=== PATIENT | female | born 1970 | race Caucasian/White ===

== ENCOUNTER 2017-10-28 02:35 | Outpatient (CLI) | payer BC, SELFPAY ==
--- NOTE | 2017-10-28 08:35 | DI.US_ITS ---
SYMPTOM/DIAGNOSIS: F/U RT THYROID NODULE THYROID ULTRASOUND: Routine examination. Comparison is made with 04/01/17. The right lobe measures 4.7 by 1.5 by 1.3 cm. The isthmus measures .2 cm. Left lobe measures 4.5 by 1.5 by 1.6 cm. There is again seen a mass in the mid pole of the right thyroid gland. The mass measures 1.4 by 0.8 by 0.7 cm. Using similar measuring techniques, the previously noted mass measures 1.3 by 0.7 cm. It is predominantly solid with several anechoic areas internally. These are unchanged. There does appear to be some internal blood flow noted. There is again seen a 0.1 cm. cyst in the left lobe near the isthmus. This is unchanged. There is a subtle area of slight decreased attenuation in the mid pole of the left lobe of the thyroid gland measuring 0.7 by 0.4 by 0.4 cm. No internal blood flow is seen. There is also a 0.5 by 0.3 by 0.4 cm. hypoechoic nodule seen in the lateral aspect of the left lobe of the thyroid gland. No blood flow is seen internally. These last two lesions were not appreciated on the prior thyroid ultrasound. IMPRESSION: Multi nodular thyroid gland. Stable size and appearance of the 1.4 cm. nodule in the right lobe. Two additional nodules are identified in the left lobe, not previously recognized on the examination from 04/01/17.
== END 2017-10-28 02:55 ==
DX: E04.2 Nontoxic multinodular goiter (principal)
CPT/HCPCS: 76536

== ENCOUNTER 2017-12-17 09:35 | Outpatient (CLI) | payer BC, SELFPAY ==
[2017-12-17 11:18] LABS: TSH (W/Ref FT4) 1.55 uIU/mL (0.358-3.74)
== END 2017-12-17 09:55 ==
PROVIDERS: Visit Provider Otolaryngology
DX: E04.2 Nontoxic multinodular goiter (principal)
CPT/HCPCS: 36415; 84443

== ENCOUNTER 2018-06-25 02:00 | Outpatient (CLI) | payer BC, SELFPAY ==
--- NOTE | 2018-06-25 16:05 | DI.US_ITS ---
SYMPTOMS/DIAGNOSIS: MULTINODULAR THYROID, E04.2 THYROID ULTRASOUND: Comparison is made with [id number]. The right lobe measures 4.4 x 1.5 x 1.4 cm. The left lobe measures 4.6 x 1.5 x 1.6 cm. A 1.4 cm nodule is again seen in the mid right thyroid lobe. The borders are smoothly marginated. There is no change in size or appearance. Minimal heterogeneity is seen in the left lobe of the thyroid. There are a few small nodules measuring less than 5 mm. IMPRESSION: Stable 1.4 cm nodule in the right lobe of the thyroid.
== END 2018-06-25 02:20 ==
PROVIDERS: Visit Provider Otolaryngology
DX: E04.2 Nontoxic multinodular goiter (principal)
CPT/HCPCS: 76536

== ENCOUNTER 2018-10-01 08:00 | Outpatient (CLI) | payer BC, SELFPAY ==
[2018-10-01 09:38] LABS: ALT 37 U/L (12-78); AST 18 U/L (15-37); Albumin 3.8 g/dL (3.4-5.0); Alkaline Phosphatase 92 U/L (46-116); Anion Gap 10.4 mmol/L (3-11); BUN 10 mg/dL (7-18); Bilirubin, Total 0.5 mg/dL (0.2-1.0); CO2 26.6 mmol/L (21.0-32.0); CREATININE 1.15 mg/dL (0.55-1.02); Calcium 9.1 mg/dL (8.5-10.1); Calculated LDL 139 mg/dL; Chloride 102 mmol/L (98-107); Cholesterol 208 mg/dL (50-200); Estimated GFR 50.36 (mL/min/1.73m2); Glucose 90 mg/dL (70-100); HDL Cholesterol 43 mg/dL (40-60); Potassium 4.4 mmol/L (3.5-5.1); Sodium 139 mmol/L (136-145); Total Protein 7.2 g/dL (6.4-8.2); Triglyceride 132 mg/dL (30-150)
== END 2018-10-01 08:20 ==
DX: E04.1 Nontoxic single thyroid nodule (principal); E78.2 Mixed hyperlipidemia; I10 Essential (primary) hypertension; K21.9 Gastro-esophageal reflux disease without esophagitis; Z00.00 Encounter for general adult medical examination without abnormal findings
CPT/HCPCS: 36415; 80053; 80061; 83721

== ENCOUNTER 2019-11-03 09:57 | Outpatient (REF) | payer BC, SELFPAY ==
--- NOTE | 2019-11-03 08:00 | PAPFT_PTH ---
PATIENT: Abimbola Stover LOC: [facility] U#:[id number] AGE/SX: 49/F ROOM: RE11/03/[address]: Nichole Salazar APRN : 1970 BED: DIS: 11/03/2019 SPEC #: [id number] RECD: 11/03/19 13:12 STATUS: SAMAN REMehreen #: [id number] CHAPARRITA: 11/03/19 08:[address]: Nichole Salazar DEPT: [facility] Cytology RECD BY: Charu Garcia Tissues: 1 - CX/ENDOCX FOR PAP SMEARS Procedures: PAP THIN PREP/UVM Screening HPV DNA PROBE Comments: [id number]
== END 2019-11-03 10:17 ==
LOC: LBN 09:57
DX: Z12.4 Encounter for screening for malignant neoplasm of cervix (principal); Z11.51 Encounter for screening for human papillomavirus (HPV)
CPT/HCPCS: 88142; 87624

== ENCOUNTER 2019-11-16 02:59 | Outpatient (CLI) | payer BC, SELFPAY ==
--- NOTE | 2019-11-16 08:45 | DI.MAMMO_ITS ---
EXAM: MAMMO SCREENING CLINICAL HISTORY: screening,Z12.39 TECHNIQUE: Mammograms were interpreted according to the usual protocol including computer analysis w [employer] CAD system, tomosynthesis and C-view imaging. COMPARISON: No exams were available for comparison. Baseline exam. FINDINGS: The breasts are composed of scattered fibroglandular densities, Breast Density category B. No suspicious masses or suspicious microcalcifications are seen. No skin thickening or abnormal axillary lymph nodes are seen. There has been no significant change from prior exams. IMPRESSION: BI-RADS Category 1, Negative mammogram Yearly screening mammography is recommended. Breast Density - Category B, scattered fibroglandular densities. A negative radiographic report should not delay biopsy if a dominant or clinically suspicious mass is present. Up to ten percent of cancers are not identified on mammography. A negative report may reinforce clinical impression. Adenosis and dense breasts may obscure an underlying neoplasm. False positive reports average 6 to 10%. Patient will receive a letter notifying them of these results.
== END 2019-11-16 03:19 ==
DX: Z12.31 Encounter for screening mammogram for malignant neoplasm of breast (principal)
CPT/HCPCS: 77063; 77067

== ENCOUNTER 2019-11-16 05:27 | Outpatient (CLI) | payer BC, SELFPAY ==
[2019-11-16 09:35] LABS: ALT 36 U/L (14-59); AST 19 U/L (15-37); Albumin 3.8 g/dL (3.4-5.0); Alkaline Phosphatase 104 U/L (46-116); BUN 10 mg/dL (7-18); Bilirubin, Total 0.5 mg/dL (0.2-1.0); CREATININE 1.21 mg/dL (0.55-1.02); Calcium 8.9 mg/dL (8.5-10.1); Chloride 103 mmol/L (98-107); Glucose 94 mg/dL (74-106); Potassium 4.1 mmol/L (3.5-5.1); Sodium 138 mmol/L (136-145); TSH (W/Ref FT4) 1.73 uIU/mL (0.36-3.74); Total Protein 6.9 g/dL (6.4-8.2)
== END 2019-11-16 05:47 ==
DX: G47.00 Insomnia, unspecified (principal); E04.1 Nontoxic single thyroid nodule; E04.2 Nontoxic multinodular goiter; I10 Essential (primary) hypertension; K20.0 Eosinophilic esophagitis; Z00.00 Encounter for general adult medical examination without abnormal findings
CPT/HCPCS: 36415; 80053; 84443

== ENCOUNTER 2020-12-25 04:17 | Outpatient (CLI) | payer BC, SELFPAY ==
[2020-12-26 01:37] LABS: BUN 13 mg/dL (7-18); CREATININE 1.2 mg/dL (0.55-1.02); Calcium 8.9 mg/dL (8.5-10.1); Calculated LDL 127 mg/dL (<100); Cholesterol 186 mg/dL (<200); Estimated GFR 47.36 (mL/min/1.73m2); Glucose 94 mg/dL (74-106); HDL Cholesterol 42 mg/dL (40-60); Total Protein 6.9 g/dL (6.4-8.2); Triglyceride 89 mg/dL (<150)
[2020-12-26 01:38] LABS: ALT 42 U/L (14-59); AST 16 U/L (15-37); Albumin 3.8 g/dL (3.4-5.0); Alkaline Phosphatase 95 U/L (46-116); Anion Gap 10.4 mmol/L (3-11); Bilirubin, Total 0.3 mg/dL (0.2-1.0); CO2 25.6 mmol/L (21.0-32.0); Chloride 105 mmol/L (98-107); Potassium 4.3 mmol/L (3.5-5.1); Sodium 141 mmol/L (136-145)
== END 2020-12-25 04:18 | disposition home or self-care (01) ==
LOC: LBO 04:17
DX: Z00.00 Encounter for general adult medical examination without abnormal findings (principal); E78.5 Hyperlipidemia, unspecified
CPT/HCPCS: 36415; 80053; 80061

== ENCOUNTER 2021-01-21 17:22 | Outpatient (REF) | payer BC, SELFPAY ==
[2021-01-21 17:11] LABS: Source Nasal/Nares
[2021-01-21 22:25] LABS: COVID-19 PCR Negative (Negative)
== END 2021-01-21 17:23 | disposition home or self-care (01) ==
LOC: LBN 17:22
PROVIDERS: Visit Provider Obstetrics & Gynecology
DX: Z20.822 Contact with and (suspected) exposure to COVID-19 (principal)
CPT/HCPCS: 87635

== ENCOUNTER 2021-01-23 08:30 | Day surgery (SDC) | payer BC, SELFPAY ==
[2021-01-23 08:48] VITALS: BP 156/80; PULSE 75; RESP 16; TEMP 36.8; O2SAT 99
--- NOTE | 2021-01-23 09:18 | ANES.PREOP_ITS ---
General Info Date of Service Date Performed: 01/23/21 Height: 5 ft 4 in Weight: 95.878 kg Body Mass Index (BMI): 36.3 Surgical Procedure: Operation Date: 01/23/21 09:55 Proposed Procedures Side Surgeon p Dilation & Curettage with Hysteroscopy and IUD Removal Rubia Medrano MD Meds Allergies and Home Medications Allergies Allergy/AdvReac Type Severity Reaction Status Date / Time influenza virus vaccine, Allergy Intermediate Rash Verified 01/23/21 08:45 specific peanut Allergy Intermediate Espophageal Verified 01/23/21 08:45 Spasms shellfish derived Allergy Intermediate Espophageal Verified 01/23/21 08:45 Spasms strawberry Allergy Intermediate Espophageal Verified 01/23/21 08:45 Spasms egg Allergy Verified 01/23/21 08:45 bupropion AdvReac Severe SUICIDAL Verified 01/23/21 08:45 IDEATION escitalopram oxalate AdvReac Intermediate Verified 01/23/21 08:45 [From Lexapro] Dairy Allergy Intermediate Espophageal Uncoded 01/23/21 08:45 Spasms Home Medication Medication Instructions Recorded copper [Paragard T 380-A] 1 ea INTRAUTERINE ONCE #1 implant 03/05/14 lisinopril 20 mg tablet 20 mg PO DAILY #90 tab 07/03/20 pantoprazole 20 mg tablet,delayed 20 mg PO DAILY #90 tab 09/06/20 release amlodipine 2.5 mg PO HS 01/22/21 Current Visit Medications: Current Medications Generic Name Dose Route Start Last Admin Trade Name Freq PRN Reason Stop Dose Admin Ringer's Solution 1,000 mls @ 125 mls/hr 01/23/21 06:00 IV 02/21/21 23:59 INFUSION REGINALDO IV Miscellaneous Supplies 1 each 01/23/21 06:00 Iv Access IV 02/21/21 23:59 DIRECTED REGINALDO Sodium Chloride 0 ml 01/23/21 06:00 Normal Saline Flush 10 Ml Syr IV 02/21/21 23:59 PRN PRN Sodium Chloride 0 ml 01/23/21 06:00 Normal Saline 10 Ml Vial IJ 02/21/21 23:59 DIRECTED PRN Sterile Water 0 ml 01/23/21 06:00 Water,Injection,Sterile 10 Ml Vial IJ 02/21/21 23:59 DIRECTED PRN PFSH Active Problems Active Problems: Problem Status Onset Code Essential hypertension 07/14/13 I10 External hemorrhoids 05/07/17 K64.4 Migraine G43.909 Increased body mass index (BMI) R63.8 Actinic keratosis L57.0 Nancy-menopause N95.1 Hyperlipidemia LDL goal <100 E78.5 IUD mechanical complication T83.39XA Retained intrauterine contraceptive device (IUD) T83.39XA Medical History Active Problem List Essential hypertension (Acute 07/14/13) External hemorrhoids (Acute 05/07/17) Migraine (Acute) Increased body mass index (BMI) (Acute) Actinic keratosis (Acute) Nancy-menopause (Acute) Hyperlipidemia LDL goal <100 (Acute) IUD mechanical complication (Acute) Retained intrauterine contraceptive device (IUD) (Acute) Medical History Eosinophilic esophagitis (01/01/17) by EGD 11/24/2016 +2cm hiatal Hernia [facility] [place]07/17, repeat in 2022 Gastroesophageal reflux (07/14/13) 12/2020 - Pantaprozole best results-now using every other day pt. 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 Plantar fasciitis of left foot Plantar wart of both feet Sciatica of left side (03/03/14) [facility] [place] clinic and pain clinic 08/30 disc excision L4-5 [place] [facility] [place] Surgical History Surgical History H/O eye surgery in childhood for ptosis History of lumbar laminectomy (2016) for siatica Tobacco Smoking/Tobacco Use Status: Never Passive smoking exposure: Yes Second hand exposure: Yes Alcohol Alcohol Intake: current Alcohol intake frequency: holidays/special occasions only Alcohol type: hard liquor Substance Use Substance use: Never Substance use type: does not use Prental History History 1 Para Hx # Term Pregnancies 1 Multiple births Hx # Pregnancies Ectopic pregnancies AB induced Hx Number of Living Children AB spontaneous Past Pregnancies Del. Date GA/Weeks # Outcome Route Wgt Sex Labor Lgth Anesthes ia Location Prov Complic 09/24/89 40 No Successful vaginal 3061.748 g Male 10 Vital Signs and Lab Results Vital Signs Most Recent Vital Signs in EMR: Most Recent Vital Signs Temp Pulse Resp BP Pulse Ox 36.8 C 75 16 156/80 H 99 01/23/21 08:48 01/23/21 08:48 01/23/21 08:48 01/23/21 08:48 01/23/21 08:48 Lab Results Result Diagrams: 01/23/21 09:05 Blood Type / Crossmatch: Patient ABO/Rh Pending 01/23/21 09:05 01/23/21 Complete Blood Count: No Data to Display Complete Metabolic Panel: Sodium Level 141 mmol/L (136-145) 12/25/20 08:20 12/25/20 Potassium Level 4.3 mmol/L (3.5-5.1) 12/25/20 08:20 12/25/20 Chloride Level 105 mmol/L (98-107) 12/25/20 08:20 12/25/20 Carbon Dioxide Level 25.6 mmol/L (21.0-32.0) 12/25/20 08:20 12/25/20 Blood Urea Nitrogen 13 mg/dL (7-18) 12/25/20 08:20 12/25/20 Creatinine 1.2 mg/dL (0.55-1.02) H 12/25/20 08:20 12/25/20 Estimated GFR/1.73 m2 47.36 (mL/min/1.73m2) 12/25/20 08:20 12/25/20 Calcium Level 8.9 mg/dL (8.5-10.1) 12/25/20 08:20 12/25/20 Albumin 3.8 g/dL (3.4-5.0) 12/25/20 08:20 12/25/20 Glucose Level 94 mg/dL (74-106) 12/25/20 08:20 12/25/20 Liver Function Panel: Alanine Aminotransferase (ALT/SGPT) 42 U/L (14-59) 12/25/20 08:20 12/25/20 Aspartate Amino Transf (AST/SGOT) 16 U/L (15-37) 12/25/20 08:20 12/25/20 Coagulation Panel: No Data to Display Cardiac Panel: No Data to Display Arterial Blood Gas: No Data to Display Venous Blood Gas: No Data to Display Pancreas Panel: No Data to Display Thyroid Panel: No Data to Display Infectious Disease: Coronavirus (COVID-19)(PCR) Negative (Negative) 01/21/21 15:30 01/21/21 Coronavirus 2019 Source Nasal/Nares 01/21/21 15:30 01/21/21 Blood Cultures: No Data to Display Toxicology Panel: No Data to Display Panel: No Data to Display Anesthesia Assessment and Plan Anesthesia History Personal History: No History of Anesthesia Complications Family History: No Family History of Anesthesia Complications Exercise Tolerance Exercise Tolerance: Metabolic Equivalents>4 Pertinent Negatives Pertinent Negatives: No Symptoms of GERD, No Major Cardiovascular Symptoms or Complaints, No Major Pulmonary Symptoms or Complaints and No History of CVA/TIA Cardiac & Pulmonary Exam Cardiac Exam: Normal S1/S2 Heart Sounds Pulmonary Exam: Clear Bilateral Breath Sounds Implantable Cardiac Device Does patient have a Pacemaker or an ICD?: No Airway Exam Known Difficult Airway: No Mallampati Class: 2 Mouth Opening: Normal (> 3cm) Thyromental Distance: Greater than 3 cm Neck Range of Motion: Full ROM Neck Circumference: Normal Teeth Condition: Normal Dentition ASA Classification ASA Score: ASA 2 Emergency Case?: No NPO Status NPO Status: NPO Clears >2 hours, Solids >8 hours Status Status: Not Relevant due to Medical History Anesthesia Plan Resuscitation Status: Full Code Anesthesia Technique: General Anesthesia Airway Planned: Natural Airway Monitors Used: Standard Monitors
[2021-01-23 09:19] LABS: HCT 43.4 % (36.0-46.0); HGB 14.1 g/dL (11.2-15.7); MCH 30.3 pg (27.0-33.0); MCHC 32.5 % (32.0-36.0); MCV 93.1 fL (80-95); MPV 10.5 fL (8.0-11.0); Platelet Count 216 10^3/uL (130-400); RBC 4.66 10^6/uL (3.93-5.22); RDW-SD 41.7 fL; WBC 7.93 10^3/uL (4.4-10.8)
[2021-01-23] MEDS: Lactated Ringers 1,000 ML 125 ML IV (09:23)
[2021-01-23 09:29] VITALS: BMI 36.3
--- NOTE | 2021-01-23 09:29 | NUR.NOTE ---
Nursing Note: Patient had lab draw at 0857 for CBC and type and screen, MD at bedside at 0755 to complete consent and update H&P- MD said to call on cell phone when ready for procedure, Anesthesia at bedside at 09 to consent patient IV patent and running call light within reach
--- NOTE | 2021-01-23 10:19 | ENDOMET_PTH ---
PATIENT: Abimbola Stover LOC: [facility] U#:[id number] AGE/SX: 50/F ROOM: RE01/23/[address]: Rubia Medrano MD : 1970 BED: DIS: 01/23/2021 SPEC #: [id number] RECD: 01/23/21 12:44 STATUS: SAMAN REQ #: [id number] CHAPARRITA: 01/23/21 10:[address]: Rubia Medrano DEPT: Surgical Specimen RECD BY: Charu Garcia ENTERED: 01/23/21 12:44 SP TYPE: Endomet OTHR DR: Nichole Salazar APRN Tissues: 1 - ENDOMETRIUM BX/CURRETTE Procedures: GROSS AND MICRO LEVEL 4 Comments: [id number]
[2021-01-23] MEDS: Silver Nitrate Stick 1 EACH (10:23)
[2021-01-23 10:34] VITALS: BP 147/97; PULSE 72; RESP 16; TEMP 36.5; O2SAT 96
[2021-01-23 10:39] VITALS: BP 147/97; PULSE 69; RESP 10; TEMPC 36.3; O2SAT 96
--- NOTE | 2021-01-23 10:39 | W.ANESPOSTOP ---
Postoperative Evaluation Date, Time and Location Date Performed: 01/23/21 Time Performed: 10:39 Patient Location: Day Surgery Unit Vital Signs Most Recent Imported Vital Signs: Most Recent Vital Signs Temp Pulse Resp BP Pulse Ox 36.8 C 75 16 156/80 H 99 01/23/21 08:48 01/23/21 08:48 01/23/21 08:48 01/23/21 08:48 01/23/21 08:48 Most Recent Manually Entered Vital Signs: Adult Blood Pressure: 147/97 Heart Rate: 69 Respirations: 10 Oxygen Saturation (%): 96 Temperature (C): 36.3 C Pain Score (0-10 Scale): 0 Pain Score Most Recent Pain Score: Most Recent Pain Score Pain Level 0 01/23/21 08:48 Assessment Mental Status: Awake (Alert & Oriented to Patient Baseline) Airway and Respiratory Function: Patent airway with normal (patient baseline) respiratory exam Cardiovascular Function: Hemodynamically Stable Hydration Status: Adequately Hydrated Nausea & Vomiting: No Nausea or Vomiting Pain: Pain is tolerable per patient Peripheral Nerve Block: Patient did not receive a nerve block
--- NOTE | 2021-01-23 10:52 | W.PM.DSUDISC ---
Discharge Plan Disposition Patient Disposition: HOME Condition: Stable Discharge Details Attending Provider: Rubia Medrano Primary Care Provider: Nichole Salazar Home Meds and New Rx's Prescriptions: Continued ParaGard T 380A 1 EACH intrauterine device 1 ea Intrauterine ONCE Qty: 1 RF: 0 lisinopril 20 mg tablet 20 mg PO DAILY Qty: 90 RF: 3 pantoprazole 20 mg tablet,delayed release (DR/EC) 20 mg PO DAILY Qty: 90 RF: 3 amlodipine 2.5 mg tablet 2.5 mg PO HS RF: 0 Discharge Instructions Stand Alone Forms: DSU Post Gynecology Surgery Activity:: Activity as Tolerated Shower/Bathe:: 24 hours Diet:: As Tolerated Discharge Orders Discharge Orders: Discharge Order (Routine); Ordered 01/23/21 Ordered By: Rubia Medrano
[2021-01-23 11:06] VITALS: BP 149/103; PULSE 60; RESP 16; TEMP 36.6; O2SAT 99
--- NOTE | 2021-01-28 16:19 | W.PM.OP ---
Date of service: 01/23/21 Time of Service: 10:21 Operative Note Operative Note DATE OF PROCEDURE: 01/23/21 PRE-OP DIAGNOSIS: Retained IUD arm. Desires IUD insertion. Abnormal uterine bleeding POST-OP DIAGNOSIS: same PROCEDURE: Hysteroscopy, dilation and curettage, removal of IUD arm, insertion of Paragard IUD SURGEON: Rubia Medrano ANESTHESIA TYPE: Local By Surgeon and MAC Refer to Anesthesia Record ESTIMATED BLOOD LOSS: 100 PATHOLOGY: other (endometrial curettings) COMPLICATIONS: None Patient was transported to: PACU Patient's condition: stable Implants: Paragard IUD Indications: Paragard IUD arm broke off on remval. IUD had been in place x16 years. Findings: IUD arm visualized in lower right uterine segment protruding into the endometrium. Procedure Description: After informed consent was signed the patient was taken to the operating room and given monitored anesthesia care. SCDs were placed on her legs. She was prepped and draped in the dorsal lithotomy position in the [facility]. A time out was performed. A speculum was placed into the vagina to visualize the cervix. A cervical block with given with marcaine with epinephrine ~10ml. The anterior lip of the cervix was grasped with the single tooth tenaculum. The hysteroscope was inserted through the cervix into the uterus. The IUD arm was visualized protruding out of the lower right uterine segment. It was grasped with laparoscopic graspers and with 2 attempts it was removed from the uterus with minimal bleeding. A sharp curettage was then performed. The tenaculum was removed with good hemostasis with silver nitrate. The speculum was removed from the vagina. The patient was placed back into the supine position. She was moved to the stretcher and taken to the recovery room in stable condition.
== END 2021-01-23 11:40 | disposition home or self-care (01) ==
PROVIDERS: Visit Provider Obstetrics & Gynecology
PROC: 0UDB8ZZ Extraction of Endometrium, Via Natural or Artificial Opening Endoscopic (ICD-10-PCS; CPT 58558; principal; 2021-01-23 09:45)
DX: T83.39XA Other mechanical complication of intrauterine contraceptive device, initial encounter (principal); E78.5 Hyperlipidemia, unspecified; I10 Essential (primary) hypertension; Z30.433 Encounter for removal and reinsertion of intrauterine contraceptive device; N92.5 Other specified irregular menstruation
CPT/HCPCS: 58558; 58300; 36415; 85027; 86850; 86900; 86901; 88305; J1100; J1885; J2001; J2405

== ENCOUNTER 2022-01-29 02:49 | Outpatient (CLI) | payer BC, SELFPAY ==
[2022-01-29 07:55] LABS: Abs Immature Grans 0.12 10^3/uL (0.0-0.06); Absolute Basophil Count 0.08 10^3/uL (0.0-0.2); Absolute Eosinophil Count 0.09 10^3/uL (0.0-0.7); Absolute Lymphocyte Count 2.11 10^3/uL (1.2-3.4); Absolute Monocyte Count 1.12 10^3/uL (0.1-0.8); Absolute Neutrophil Count 6.35 10^3/uL (1.2-6.7); Basophils % 0.8; Eosinophils % 0.9; HCT 44.2 % (36.0-46.0); HGB 14.6 g/dL (11.2-15.7); Immature Grans % 1.2; Lymphocytes % 21.4; MCH 30.2 pg (27.0-33.0); MCV 92 fL (80-95); MPV 10.1 fL (8.0-11.0); Monocytes % 11.3; Neutrophils % 64.4; Platelet Count 232 10^3/uL (130-400); RBC 4.83 10^6/uL (3.93-5.22); RDW 12.6 % (11.7-14.6); RDW-SD 42.2 fL; WBC 9.87 10^3/uL (4.4-10.8)
[2022-01-29 08:48] LABS: Hemoglobin A1C 5.6 % (<5.7)
[2022-01-29 08:58] LABS: ALT 58 U/L (14-59); AST 25 U/L (15-37); Albumin 3.8 g/dL (3.4-5.0); Alkaline Phosphatase 96 U/L (46-116); Anion Gap 6.3 mmol/L (3-11); BUN 16 mg/dL (7-18); Bilirubin, Total 0.6 mg/dL (0.2-1.0); CO2 28.7 mmol/L (21.0-32.0); CREATININE 1.2 mg/dL (0.55-1.02); Calcium 9.1 mg/dL (8.5-10.1); Chloride 100 mmol/L (98-107); Estimated GFR 54.46 (mL/min/1.73m2); FREE T4 1.05 ng/dL (0.76-1.46); Glucose 105 mg/dL (74-106); Potassium 4.1 mmol/L (3.5-5.1); Sodium 135 mmol/L (136-145); TSH 2.44 uIU/mL (0.36-3.74); Total Protein 7.3 g/dL (6.4-8.2)
[2022-01-29 09:14] LABS: Calculated LDL 122 mg/dL (<100); Cholesterol 198 mg/dL (<200); HDL Cholesterol 44 mg/dL (40-60); Triglyceride 160 mg/dL (<150)
[2022-01-29 17:31] LABS: T3, Total 200 ng/dL (97-169)
== END 2022-01-29 02:50 | disposition home or self-care (01) ==
LOC: LBO 02:50
PROVIDERS: PCP Nurse Practitioner Family; Visit Provider Nurse Practitioner Family
DX: E04.1 Nontoxic single thyroid nodule (principal); E04.2 Nontoxic multinodular goiter; E78.5 Hyperlipidemia, unspecified; G43.909 Migraine, unspecified, not intractable, without status migrainosus; I10 Essential (primary) hypertension; N95.1 Menopausal and female climacteric states; R63.8 Other symptoms and signs concerning food and fluid intake; Z00.00 Encounter for general adult medical examination without abnormal findings
CPT/HCPCS: 36415; 80053; 80061; 83036; 84439; 84443; 84480; 85025

== ENCOUNTER 2022-02-14 00:20 | Outpatient (CLI) | payer BC, SELFPAY ==
--- NOTE | 2022-02-14 07:45 | DI.MAMMO_ITS ---
Exam(s) MAMMO SCREENING EXAM: MAMMO SCREENING CLINICAL HISTORY: screening,Z12.39 TECHNIQUE: Mammograms were interpreted according to the usual protocol including computer analysis w [employer] CAD system, tomosynthesis and C-view imaging. COMPARISON: 2020 FINDINGS: The breasts are composed of mainly fatty density , Breast Density category A. No suspicious masses or suspicious microcalcifications are seen. No skin thickening or abnormal axillary lymph nodes are seen. There has been no significant change from prior exams. IMPRESSION: BI-RADS Category 1, Negative mammogram Yearly screening mammography is recommended. Breast Density - Category A, fatty density. A negative radiographic report should not delay biopsy if a dominant or clinically suspicious mass is present. Up to ten percent of cancers are not identified on mammography. A negative report may reinforce clinical impression. Adenosis and dense breasts may obscure an underlying neoplasm. False positive reports average 6 to 10%. Patient will receive a letter notifying them of these results.
== END 2022-02-14 00:40 ==
LOC: DI 00:21
PROVIDERS: PCP Nurse Practitioner Family; Visit Provider Nurse Practitioner Family
DX: Z12.31 Encounter for screening mammogram for malignant neoplasm of breast (principal)
CPT/HCPCS: 77063; 77067

== ENCOUNTER 2022-09-10 03:39 | Outpatient (CLI) | payer BC, SELFPAY ==
[2022-09-10 09:33] LABS: ALT 34 U/L (14-59); AST 15 U/L (15-37); Albumin 3.8 g/dL (3.4-5.0); Alkaline Phosphatase 106 U/L (46-116); Anion Gap 8.4 mmol/L (3-11); BUN 15 mg/dL (7-18); Bilirubin, Total 0.4 mg/dL (0.2-1.0); CO2 26.6 mmol/L (21.0-32.0); CREATININE 1.3 mg/dL (0.55-1.02); Calcium 9.1 mg/dL (8.5-10.1); Chloride 104 mmol/L (98-107); Estimated GFR 49.48 (mL/min/1.73m2); Glucose 96 mg/dL (74-106); Potassium 4.2 mmol/L (3.5-5.1); Sodium 139 mmol/L (136-145); Total Protein 7.4 g/dL (6.4-8.2)
== END 2022-09-10 03:40 | disposition home or self-care (01) ==
LOC: LBO 03:39
PROVIDERS: PCP Nurse Practitioner Family; Visit Provider Nurse Practitioner Family
DX: I10 Essential (primary) hypertension (principal)
CPT/HCPCS: 36415; 80053

== ENCOUNTER 2022-12-25 21:28 | Outpatient (REF) | payer BC, SELFPAY ==
[2022-12-25 21:55] LABS: Bilirubin Negative (Negative); Blood Moderate (Negative); Clarity Clear (Clear); Glucose Negative (Negative); Ketones Negative (Negative); Leukocyte Esterase Small (Negative); Nitrite Negative (Negative); Specific Gravity 1.015 (1.005-1.025); Urobilinogen 0.2 mg/dL (Up to 0.2); pH 5.5 (5-8)
[2022-12-25 22:08] LABS: Bacteria Few HPF (Negative); C & S Indicated? Yes; Casts Negative LPF (Negative); Crystals Negative HPF (Negative); Epithelial Cells Few HPF (Negative); Mucus Negative (Negative)
== END 2022-12-25 21:29 | disposition home or self-care (01) ==
LOC: LBN 21:28
PROVIDERS: PCP Nurse Practitioner Family; Visit Provider Nurse Practitioner Family
DX: N39.0 Urinary tract infection, site not specified (principal)
CPT/HCPCS: 87077; 81003; 81015; 87086; 87186

== ENCOUNTER 2023-01-21 02:45 | Outpatient (CLI) | payer BC, SELFPAY ==
[2023-01-21 09:01] LABS: Anion Gap 10.3 mmol/L (3-11); BUN 15 mg/dL (7-18); CO2 26.7 mmol/L (21.0-32.0); CREATININE 1.2 mg/dL (0.55-1.02); Calcium 9.1 mg/dL (8.5-10.1); Chloride 105 mmol/L (98-107); Estimated GFR 54.13 (mL/min/1.73m2); Glucose 90 mg/dL (74-106); Potassium 4.2 mmol/L (3.5-5.1); Sodium 142 mmol/L (136-145)
== END 2023-01-21 02:46 | disposition home or self-care (01) ==
LOC: LBO 02:45
PROVIDERS: PCP Nurse Practitioner Family; Visit Provider Nurse Practitioner Family
DX: I10 Essential (primary) hypertension (principal)
CPT/HCPCS: 36415; 80048

== ENCOUNTER 2024-01-29 10:50 | Outpatient (CLI) | payer BC, SELFPAY ==
[2024-01-29 08:22] LABS: MCH 30.2 pg (27.0-33.0); MCHC 33.3 % (32.0-36.0); MCV 91 fL (80-95); Platelet Count 182 10^3/uL (130-400); RBC 4.96 10^6/uL (3.93-5.22); RDW 12.3 % (11.7-14.6); RDW-SD 40.6 fL; WBC 7.68 10^3/uL (4.4-10.8)
[2024-01-29 08:32] LABS: Hemoglobin A1C 5.2 % (<5.7)
[2024-01-29 08:49] LABS: Anion Gap 11.2 mmol/L (3-11); BUN 18 mg/dL (7-18); CO2 25.8 mmol/L (21.0-32.0); CREATININE 1.4 mg/dL (0.55-1.02); Calcium 9.7 mg/dL (8.5-10.1); Calculated LDL 117 mg/dL (<100); Chloride 105 mmol/L (98-107); Cholesterol 194 mg/dL (<200); Estimated GFR 44.71 (mL/min/1.73m2); Glucose 100 mg/dL (74-106); HDL Cholesterol 59 mg/dL (40-60); Potassium 4.3 mmol/L (3.5-5.1); Sodium 142 mmol/L (136-145); TSH (W/Ref FT4) 1.51 uIU/mL (0.36-3.74); Triglyceride 91 mg/dL (<150)
== END 2024-01-29 10:51 | disposition home or self-care (01) ==
LOC: LBO 10:50
PROVIDERS: PCP Nurse Practitioner Family; Visit Provider Nurse Practitioner Family
DX: Z00.00 Encounter for general adult medical examination without abnormal findings (principal); H90.0 Conductive hearing loss, bilateral; E04.1 Nontoxic single thyroid nodule; I10 Essential (primary) hypertension; G43.909 Migraine, unspecified, not intractable, without status migrainosus; R63.8 Other symptoms and signs concerning food and fluid intake; E78.5 Hyperlipidemia, unspecified; N95.1 Menopausal and female climacteric states; T83.39XA Other mechanical complication of intrauterine contraceptive device, initial encounter
CPT/HCPCS: 36415; 80048; 80061; 85027; 83036; 84443

== ENCOUNTER 2024-08-05 09:25 | Outpatient (CLI) | payer BC, SELFPAY ==
--- NOTE | 2024-08-05 09:15 | RT.EKG_ITS ---
APPROVED REPORT Exam: Resting ECG Reason for Exam: L shoulder pain Patient Location: O HR:59 bpm ECG Measurements Heart Rate 59 AXIS NH 165 P 43 QRSd 132 QRS 27 QT 397 T 29 QTc 394 Conclusion Sinus rhythm...normal P axis, V-rate 50- 99 Normal Electrocardiogram
== END 2024-08-05 09:26 | disposition home or self-care (01) ==
LOC: DI.CM 09:26
PROVIDERS: PCP Nurse Practitioner Family; Visit Provider Nurse Practitioner Family
DX: R11.0 Nausea (principal); M79.602 Pain in left arm
CPT/HCPCS: 93010

== ENCOUNTER 2024-08-05 09:56 | Emergency (ER) | payer BC, SELFPAY ==
--- NOTE | 2024-08-05 10:00 | RT.EKG_ITS ---
APPROVED REPORT Exam: Resting ECG Reason for Exam: Sudden onset LT arm pain upon awakening; no trauma Patient Location: E HR:63 bpm ECG Measurements Heart Rate 63 AXIS DE 159 P 33 QRSd 88 QRS 23 QT 386 T 34 QTc 396 Conclusion Sinus rhythm...normal P axis, V-rate 60- 99 I have reviewed and interpreted ECG and agree with software generated interpretation.
[2024-08-05 10:02] VITALS: BP 158/107; PULSE 73; RESP 16; TEMP 36.6
--- NOTE | 2024-08-05 10:45 | DI.RAD_ITS ---
Exam(s) XR SHOULDER LT COMPLETE 2+V EXAM: XR SHOULDER LT COMPLETE 2+V CLINICAL HISTORY: L shoulder pain. TECHNIQUE: 2D digital imaging was performed. Three views. COMPARISON: No exams were available for comparison FINDINGS: BONES: No acute fracture is present. No bony destructive lesion is seen. JOINTS: No dislocation present. SOFT TISSUE: Normal there is a small calcification near the greater tuberosity which may represent calcific tendinosis. IMPRESSION: Small focus of calcification adjacent to the greater tuberosity consistent with calcific tendinosis. DATA REPOSITORY: RADIATION DOSE DELIVERED:
[2024-08-05 10:59] VITALS: BP 158/107; PULSE 73; RESP 16; TEMP 36.6
[2024-08-05 11:32] VITALS: BP 142/90; PULSE 86; RESP 18; O2SAT 98
--- NOTE | 2024-08-05 11:32 | W.ED.GENAD ---
Discharge Plan Disposition Patient Disposition: Home Condition: Stable Discharge Details Clinical Impression: Calcific tendinitis of left shoulder Primary Care Provider: Mavis Chavis ED Provider: Pedro Kohler Home Meds and New Rx's Prescriptions: Continued benzonatate 100 mg capsule 100 mg PO TID PRN (Reason: cough) Qty: 60 0RF ParaGard T 380A 1 EACH intrauterine device 1 ea Intrauterine ONCE Qty: 1 Rx Instructions: [facility] [place] June 2009, CHANGE due June 2019 lisinopril 10 mg tablet 10 mg PO DAILY Qty: 90 3RF pantoprazole 20 mg tablet,delayed release (DR/EC) 20 mg PO DAILY Qty: 90 3RF semaglutide (weight loss) 2.4 mg/0.75 mL pen injector 2.4 mg subcut QWEEK Qty: 9 4RF Rx Instructions: Week 17 and thereafter (maintenance dosage): 2.4 mg once weekly Discharge Instructions Instructions: Calcific Tendinopathy of the Shoulder (DC) Additional Instructions: You were seen in the emergency department for your left shoulder pain, this is likely due to the calcific tendinitis seen on x-ray but you could also have a rotator cuff partial or full tear. Please apply ice and gentle heat to the shoulder, please use therapeutic dosing of Tylenol (acetamenophen) & Advil (ibuprofen) in an alternating fashion as follows: Take 1000mg of Tylenol every 6 hours without missing doses- that is 4 times per day. Prison in between the Tylenol dosings, take 400-600mg of Advil also on a 6 hour schedule, that is also 4 times per day. The daily maximum dosing of Tylenol is 4000mg, and the daily maximum dosing of Advil is 2400mg. This is safe to do for weeks. Please note that some common cold medications & prescription pain medications may contain acetamenophen and you need to read OTC drug labels and factor that in to maximum daily dosings. Perform pendulum exercises as we discussed. Please follow-up with a primary care referral to orthopedics for possible MRI and other advanced interventions. Referrals: [facility] [Provider Group] Mavis Chavis NP [Primary Care Provider, Medicine] Discharge Data Discharge Date/Time-TO BE ENTERED AT DEPARTURE: 08/05/24 11:48 HPI General Date/Time Provider Initiated Documentation: 08/05/24 10:11. HPI Narrative: 53 year-old female presents to ED today by POV/ambulating with a chief complaint of L shoulder/upper arm pain worse with movement- seen at [facility] sent here for cardiac ruleout with normal EKG with onset noted this morning. Patient does recall moving a lot of boxes helping a family member move days ago. Quality described as soress with movement in the lateral shoulder/deltoid region, no radiation to numbness, gross swelling, deformity, neck pain, chest pain, palpitations, dizziness, diaphoresis, nausea. Severity is described as moderate to severe. Palliating factors include nothing specific. Provoking factors include nothing specific. Patient not anticoagulated. Related Data Home Medications ?Medication ?Instructions ?Recorded ?Confirmed copper 380 square mm intrauterine 1 ea intrauterine ONCE #1 implant 03/05/14 08/05/24 device (ParaGard T 380A) benzonatate 100 mg capsule 100 mg PO TID PRN cough #60 caps 02/25/23 08/05/24 lisinopril 10 mg tablet 10 mg PO DAILY #90 tabs 12/10/23 08/05/24 pantoprazole 20 mg tablet,delayed 20 mg PO DAILY replaces 12/10/23 08/05/24 release unavailable Rabeprazole #90 tabs semaglutide (weight loss) 2.4 2.4 mg (0.75 mL) subcut QWEEK #9 mL 02/01/24 08/05/24 mg/0.75 mL subcutaneous pen injector Previous Rx's ?Medication ?Instructions ?Recorded benzonatate 100 mg capsule 100 mg PO TID PRN cough #60 caps 02/25/23 lisinopril 10 mg tablet 10 mg PO DAILY #90 tabs 12/10/23 pantoprazole 20 mg tablet,delayed 20 mg PO DAILY replaces 12/10/23 release unavailable Rabeprazole #90 tabs semaglutide (weight loss) 2.4 2.4 mg (0.75 mL) subcut QWEEK #9 mL 02/01/24 mg/0.75 mL subcutaneous pen injector Allergies Allergy/AdvReac Type Severity Reaction Status Date / Time influenza virus vaccine, Allergy Intermediate Rash Verified 08/05/24 10:07 specific peanut Allergy Intermediate Espophageal Verified 08/05/24 10:07 Spasms shellfish derived Allergy Intermediate Espophageal Verified 08/05/24 10:07 Spasms strawberry Allergy Intermediate Espophageal Verified 08/05/24 10:07 Spasms egg Allergy Unknown Verified 08/05/24 10:07 bupropion AdvReac Severe SUICIDAL Verified 08/05/24 10:07 IDEATION escitalopram oxalate (From AdvReac Intermediate Psychosis Verified 08/05/24 10:07 Lexapro) Dairy Allergy Intermediate Espophageal Uncoded 08/05/24 10:07 Spasms General Stated Complaint: GenMedical MEERA: 3 Review of Systems All systems reviewed & are unremarkable except as noted in HPI and below Exam Narrative Exam Narrative: GENERAL APPEARANCE: Well-nourished, non-toxic, awake and alert, atraumatic, no acute distress. SKIN: Warm, pink, dry, intact, without rashes/lesions/ulcerations. HEAD: Normocephalic, atraumatic, normal hair distribution for gender/age. EYES: Normal conjunctiva, no exudates on lids/lashes. ENT: Nares patent, no circumoral cyanosis, no facial swelling NECK: Supple, trachea midline, painless cervical ROM. LUNGS/CHEST: Lungs CTA bilaterally, non-labored respirations, normal A/P diameter, symmetrical expansion, no chest wall deformity HEART (CV/PV): Regular rate and rhythm without murmur, no peripheral edema, no JVD. ABDOMEN: Soft, non-distended, no guarding. MSK: Normal ROM, no swelling/deformity to bilateral UEs or LEs, moving all extremities without weakness save for L UE at shoulder with pain, no cyanosis, spine midline without tenderness, normal curvature L UE: tenderness at the deltoid insertion, left radial pulse 2+, parts specialist strength 5/5, no deformity, humerus stable, no clavicle tenderness, patient is not participatory in speeds and empty can testing due to pain NEURO: Mental Status AAOx4 - alert to person, place, time, events No facial droop, no forehead involvement. Motor: No focal weakness - strength 5/5 in bilateral UEs and LEs, proximal and distal, symmetric. Sensory: sensation intact to light touch globally. Gait normal: patient ambulated without ataxia into ED room. PSYCH: euthymic, cooperative, pleasant, appropriate speech Course Vital Signs Vital signs: Vital Signs Temperature 36.6 C 08/05/24 10:02 Pulse 73 08/05/24 10:02 Respiratory Rate 16 08/05/24 10:02 Blood Pressure 158/107 H 08/05/24 10:02 Temperature 36.6 C 08/05/24 10:59 Temperature Source Tympanic 08/05/24 10:59 Pulse 73 08/05/24 10:59 Respiratory Rate 16 08/05/24 10:59 Respiratory Effort Normal 08/05/24 10:58 Respiratory Depth Normal 08/05/24 10:58 Respiratory Pattern Normal 08/05/24 10:58 Blood Pressure 158/107 H 08/05/24 10:59 Blood Pressure Position Sitting 08/05/24 10:59 Oxygen Delivery Method Room Air 08/05/24 10:59 Oxygen Flow Rate 0 08/05/24 10:59 Pain Level 3 08/05/24 10:59 Comment Pain w/ movement = 6 08/05/24 10:59 Medical Decision Making This dictation utilizes [id number] dictation software and may contain unedited grammatical errors. 53 year-old female presents to ED today by POV/ambulating with a chief complaint of L shoulder/upper arm pain worse with movement- seen at [facility] sent here for cardiac ruleout with normal EKG with onset noted this morning. Patient does recall moving a lot of boxes helping a family member move days ago. Quality described as soress with movement in the lateral shoulder/deltoid region, no radiation to numbness, gross swelling, deformity, neck pain, chest pain, palpitations, dizziness, diaphoresis, nausea. Severity is described as moderate to severe. Palliating factors include nothing specific. Provoking factors include nothing specific. Patients' medical history: GERD. Family and social history: Noncontributory. Patient is R-hand dominant. Pertinent exam findings / vital signs include tenderness at the deltoid insertion, left radial pulse 2+, parts specialist strength 5/5, no deformity, humerus stable, no clavicle tenderness, patient is not participatory in speeds and empty can testing due to pain. Differential / pathologies of concern include rotator cuff arthropathy, sprain of the shoulder, overuse injury, fracture unlikely. Diagnostic studies of: -XR L Shoulder, EKG. -EKG NSR no acute signs of ischemia -XR shows calcific tendinitis Interventions of: -recommend OTC APAP/NSAIDs, Voltaren, pendulum exercises, and to seek a PCP referral to orthopaedics for failure to improve in a couple weeks. ED Course/Assessment/Plan: 53-year-old female presents with left arm pain after helping her family move a bunch of boxes in the past week, woke up with pain this morning, I do not suspect any cardiac cause as there was a normal EKG at urgent care and a normal one repeated here she has findings consistent with rotator cuff or tendinitis and x-ray shows calcific tendinitis, counseled her on using OTC analgesics at therapeutic levels, following up with orthopedics for failure to improve, performing pendulum exercises. Findings not consistent with ACS, fracture, neurovascular compromise. Disposition of calcific tendinitis of left shoulder. Patient verbalized understanding of the plan and return to ED criteria and engaged in shared decision making. Medical Records Medical records reviewed: Yes I reviewed the patient's medical records. Imaging Data Radiologic Study: Attestation: I personally reviewed and interpreted this imaging study as follows: Imaging: X-Ray Radiologist's impression: EXAM: XR SHOULDER LT COMPLETE 2+V CLINICAL HISTORY: L shoulder pain. TECHNIQUE: 2D digital imaging was performed. Three views. COMPARISON: No exams were available for comparison FINDINGS: BONES: No acute fracture is present. No bony destructive lesion is seen. JOINTS: No dislocation present. SOFT TISSUE: Normal there is a small calcification near the greater tuberosity which may represent calcific tendinosis. IMPRESSION: Small focus of calcification adjacent to the greater tuberosity consistent with calcific tendinosis. PFSH All Active Problems (Updated 08/05/24 @ 11:39 by GENEVIEVE Peña) Calcific tendinitis of left shoulder (Acute) Abnormal weight (Acute) Conductive hearing loss, bilateral (Acute) Acute serous otitis media, bilateral (Acute) Dysfunction of both eustachian tubes (Acute) Thyroid nodule (Acute) Sinusitis (Acute) Essential hypertension (Acute 07/14/13) External hemorrhoids (Acute 05/07/17) Migraine (Acute) Increased body mass index (BMI) (Acute) Actinic keratosis (Acute) Nancy-menopause (Acute) Hyperlipidemia LDL goal <100 (Acute) IUD mechanical complication (Acute) Retained intrauterine contraceptive device (IUD) (Acute) Medical History Plantar wart of both feet Plantar fasciitis of left foot Multinodular thyroid U/S 06/25/18 - Kayden consult - f/u with him 1 year. Sciatica of left side (03/03/14) [facility] [place] MRI, spine clinic and pain clinic 08/30 disc excision L4-5 at [facility] Gastroesophageal reflux (07/14/13) 12/2020 - Pantaprozole best results-now using every other day pt. 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 Paternal Grandfather Diabetes Stroke Cancer Sister Depression Son Essential hypertension Depression FAMILY HISTORY Ashish-Danlos syndrome type III Maternal Grandmother No problems noted. Social History Smoking/Tobacco Use Status: Never Second Hand Exposure: Yes (as a child) Smoking risk assessment performed?: Yes Alcohol Intake: current Alcohol Intake frequency: holidays/special occasions only Alcohol type: hard liquor Drug use: Never Substance use type: does not use Adopted: No Caregiver/Support person: No Household members: spouse Housing: house Number of Children: 1 number of grandchildren: 2 Communication Needs: None Education Level: master's degree Do you need help understanding health information?: Never current occupation: Education Pets and animals: Yes Pets and animals: dog(s) Sexually active: No Do you think of yourself as: straight/heterosexual Current gender identity: female What is your relationship status?: How often do you talk on the phone with friends or family?: three or more times per week How often do you get together with friends or relatives?: once per week How often do you attend synagogue or adventism services?: 1-3 times per year Do you belong to any clubs or organized social groups?: no Panel score (0-1 are the most socially isolated patients): 2 What type of physical activity do you participate in: walking Duration: 15-30 minutes/day Frequency: 3-4 times per week Danielle/Baptism: Moravian Special danielle needs: No Seatbelt use: always Helmet use: Yes Helmet use: always Drive intox or ride w/intox xm1 tank driver: No Firearms in home: Yes Do you feel safe at home: Yes Do you feel safe in your relationship?: Yes Would you like helpful sources: No Female Reproductive History Menstrual Age of Menarche: 13 control method: copper IUCD History History 1 Para Hx # Term Pregnancies 1 Multiple births Hx # Pregnancies Ectopic pregnancies AB induced Hx Number of Living Children AB spontaneous Past Pregnancies Del. Date GA/Weeks # Preg Succ Route Wgt Sex Labor Lgth Anesthesia Location [facility] 09/24/89 40 No vaginal 3061.748 g Male 10
== END 2024-08-05 11:48 | disposition home or self-care (01) ==
PROVIDERS: Emergency Provider Physician Assistant; PCP Nurse Practitioner Family
DX: M75.32 Calcific tendinitis of left shoulder (principal); I10 Essential (primary) hypertension; Z79.899 Other long term (current) drug therapy
CPT/HCPCS: 93005; 99284; 73030; 93010

== ENCOUNTER 2024-10-14 01:07 | Outpatient (CLI) | payer BC, SELFPAY ==
[2024-10-14 16:13] LABS: Anion Gap 9.6 mmol/L (3-11); BUN 16 mg/dL (7-18); CO2 28.4 mmol/L (21.0-32.0); Calcium 9.4 mg/dL (8.5-10.1); Chloride 104 mmol/L (98-107); Estimated GFR 53.79 (mL/min/1.73m2); Glucose 99 mg/dL (74-106); Potassium 3.6 mmol/L (3.5-5.1); Sodium 142 mmol/L (136-145)
== END 2024-10-14 01:08 | disposition home or self-care (01) ==
LOC: LBO 01:07
PROVIDERS: PCP Nurse Practitioner Family; Visit Provider Nurse Practitioner Family
DX: R79.89 Other specified abnormal findings of blood chemistry (principal); N28.9 Disorder of kidney and ureter, unspecified
CPT/HCPCS: 36415; 80048